=== PATIENT | male | born 1980 | race Caucasian/White ===

== ENCOUNTER 2018-10-18 17:56 | Emergency (ER) | payer SELFPAY ==
[~2018-10-18 17:56] MED LIST: CYCLOBENZAPRINE10 MG PO; NORCO 5-325 TA1 EACH PO
[2018-10-18] MEDS ORDERED: PREDNISONE10 MG PO (18:03)
== END 2018-10-18 20:17 | disposition home or self-care (01) ==
LOC: ED 17:56
DX: S49.92XA Unspecified injury of left shoulder and upper arm, initial encounter (principal); S46.002A Unspecified injury of muscle(s) and tendon(s) of the rotator cuff of left shoulder, initial encounter; R03.0 Elevated blood-pressure reading, without diagnosis of hypertension; Z79.899 Other long term (current) drug therapy; W19.XXXA Unspecified fall, initial encounter; Y93.89 Activity, other specified; Y92.89 Other specified places as the place of occurrence of the external cause; Y99.8 Other external cause status

== ENCOUNTER 2021-12-28 07:47 | Emergency (ER) | payer OTHER ==
[~2021-12-28 07:47] MED LIST changes: +PREDNISONE10 MG PO
[2021-12-28] MEDS ORDERED: IBU800 M2 PO (10:18)
== END 2021-12-28 13:28 | disposition home or self-care (01) ==
LOC: ED 07:47
DX: S00.83XA Contusion of other part of head, initial encounter (principal); F17.200 Nicotine dependence, unspecified, uncomplicated; Z88.8 Allergy status to other drugs, medicaments and biological substances; W22.8XXA Striking against or struck by other objects, initial encounter; Y93.89 Activity, other specified; Y92.89 Other specified places as the place of occurrence of the external cause; Y99.8 Other external cause status